=== PATIENT | male | born 1950 | race Caucasian/White ===

== ENCOUNTER 2023-12-01 10:01 | Emergency (ER) | payer OTHER ==
[~2023-12-01] VITALS: Ht 190.5 cm; Wt 90.7 kg
[2023-12-01 10:06] VITALS: TEMP 98
[2023-12-01] MEDS ORDERED: LIDO30AD10 TP (11:35)
[2023-12-01] MEDS ORDERED: CYCL5TAB PO (11:35)
[2023-12-01] MEDS ORDERED: IBUP-1955 PO (11:35)
[2023-12-01 12:07] VITALS: BP 130/85; O2SAT 98
== END 2023-12-01 11:55 | disposition home or self-care (01) ==
LOC: ER 10:08
DX: S60.512A Abrasion of left hand, initial encounter (principal); R07.89 Other chest pain; V43.52XA Car driver injured in collision with other type car in traffic accident, initial encounter; Y93.89 Activity, other specified; Y92.488 Other paved roadways as the place of occurrence of the external cause; Y99.8 Other external cause status
CPT/HCPCS: 71045-TC